=== PATIENT | male | born 1965 | race Caucasian/White ===

== ENCOUNTER 2018-09-06 18:56 | Emergency (ER) | payer BC ==
--- NOTE | 2018-09-06 19:28 | UC ---
Shoulder Pain HPI - HPI Summary HPI Summary: 52-year-old male comes to clinic [facility] with a chief complaint of right shoulder pain. This started 4 days ago. He's been going through physical therapy for left shoulder pain. When the right shoulder started hurting he had an x-ray with Dr. persaud and sports medicine which showed rotator cuffcalcific tendonitis. Patient's been taking ibuprofen 800 mg by mouth every 8 hours. The pain relief last for about 4 hours and then the pain returns. Pain is worse with any count of range of motion of the right shoulder. No weakness or numbness. - History of Current Complaint Stated Complaint: SHOULDER PAIN Time Seen by Provider: 09/06/18 19:23 - Allergies/Home Medications Allergies/Adverse Reactions: Allergies Allergy/AdvReac Type Severity Reaction Status Date / Time MS Epinephrine [Epinephrine] Allergy Tachycardia Verified 12/15/15 11:49 PMH/Surg Hx/FS Hx/Imm Hx Previously Healthy: Yes - shoulder tendonitis - Surgical History Surgical History: None - Family History Known Family History: Positive: None - Social History Alcohol Use: Weekly Substance Use Type: None Smoking Status (MU): Light Every Day Tobacco Smoker Type: Cigarettes Amount Used/How Often: 8-10 cigs Length of Time of Smoking/Using Tobacco: 30 years Have You Smoked in the Last Year: Yes Review of Systems All Other Systems Reviewed And Are Negative: Yes Constitutional: Positive: Negative Skin: Positive: Negative Eyes: Positive: Negative ENT: Positive: Negative Respiratory: Positive: Negative Cardiovascular: Positive: Negative Gastrointestinal: Positive: Negative Motor: Positive: Decreased ROM - see hpi Neurovascular: Positive: Negative Musculoskeletal: Positive: Other: - see hpi Neurological: Positive: Negative Psychological: Positive: Negative Is Patient Immunocompromised?: No Physical Exam Triage Information Reviewed: Yes Appearance: Well-Appearing, Well-Nourished, Pain Distress - mild with rt shoulder rom Vital Signs Reviewed: Yes Eye Exam: Normal Eyes: Positive: Conjunctiva Clear Neck exam: Normal Neck: Positive: Supple Respiratory: Positive: Lungs clear, Normal breath sounds, No respiratory distress Cardiovascular: Positive: RRR Musculoskeletal: Positive: Other: - Right shoulder is tender to palpation right at the shoulder joint. He has pain with any attempt at range of motion of the shoulder. Bilateral radial pulses are normal sensation is normal for both arms. Refill is normal bilaterally. Fingers wrist elbows have full range of motion and full strength. Further range of motion of the right shoulder was not attempted due to pain. Neurological Exam: Normal Neurological: Positive: Alert, Muscle Tone Normal Psychological Exam: Normal Psychological: Positive: Age Appropriate Behavior Skin Exam: Normal Shoulder Course/Dx - Course Course Of Treatment: Patient will continue his ibuprofen 800 mg by mouth every 8 hours. I prescribed [place]vue 5/325 to be taken every 4 hours as needed. Continue with his eyes and range of motion and he will follow-up with sports medicine on September 08, 2018. - Differential Dx/Diagnosis Provider Diagnosis: Right rotator cuff tendonitis Discharge - Sign-Out/Discharge Documenting (check all that apply): Patient Departure All imaging exams completed and their final reports reviewed: No Studies - Discharge Plan Condition: Stable Disposition: HOME Prescriptions: HYDROcodone/ACETAMIN 5-325 MG* [[place]vue 5-325 TAB*] 1 tab PO Q4H PRN #30 tab MDD 6 PRN Reason: Pain Patient Education Materials: Rotator Cuff Tendinitis (ED) Referrals: Ovidio Ceron MD [Primary Care Provider] - Jasper Cheung [Medical Doctor] - Additional Instructions: FOLLOW UP WITH DR CHEUNG. GET RECHECKED FOR ANY WORSENING OF YOUR CONDITION OR QUESTIONS OR CONCERNS. - Billing Disposition and Condition Condition: STABLE Disposition: Home
[2018-09-06] MEDS ORDERED: HYDROcodone/ACETAMIN 5-325 MG* 1 TAB PO ONE (19:30)
[2018-09-06 19:38] VITALS: BP 126/87
== END 2018-09-06 19:35 | disposition home or self-care (01) ==
LOC: UCEAST 18:56
DX: M75.31 Calcific tendinitis of right shoulder (principal); Z88.8 Allergy status to other drugs, medicaments and biological substances; F17.210 Nicotine dependence, cigarettes, uncomplicated
CPT/HCPCS: 99212; G0463

== ENCOUNTER 2018-09-06 21:51 | Emergency (ER) | payer BC ==
[2018-09-06] MEDS ORDERED: oxyCODONE/Acetamin 5/325 MG* TAB PO ONE (23:10)
[2018-09-06] MEDS ORDERED: Ketorolac INJ* 60 MG/2 ML VIAL IM ONE (23:10)
[2018-09-06] MEDS ORDERED: ALPRAZolam TAB* 0.5 MG PO ONE (23:11)
--- NOTE | 2018-09-06 23:12 | ED ---
Upper Extremity Pain - HPI Summary HPI Summary: This patient is a 52 year old M presenting to ED with a chief complaint of R shoulder pain since 2 days ago. The CC is described as swollen and sensitive. The patient rates the pain 10/10 in severity. Symptoms aggravated by nothing. Symptoms alleviated by nothing. Patient has only taken advil for the pain. Patient reports anxiety. PMHx of calcium deposit in rotator cuff. - History of Current Complaint Chief Complaint: EDExtremityUpper Stated Complaint: RT ARM PAIN Time Seen by Provider: 09/06/18 22:50 Hx Obtained From: Patient Onset/Duration: Started Days Ago - 2 days ago Timing: Constant Severity Initially: Severe Severity Currently: Severe Pain Location: Shoulder - elft Aggravating Factor(s): Nothing Alleviating Factor(s): Nothing - Allergies/Home Medications Allergies/Adverse Reactions: Allergies Allergy/AdvReac Type Severity Reaction Status Date / Time MS Epinephrine [Epinephrine] Allergy Tachycardia Verified 09/06/18 21:55 PMH/Surg Hx/FS Hx/Imm Hx Endocrine/Hematology History: Denies: Hx Diabetes, Hx Thyroid Disease Cardiovascular History: Denies: Hx Hypertension Respiratory History: Denies: Hx Asthma, Hx Chronic Obstructive Pulmonary Disease (COPD) GI History: Denies: Hx Ulcer Musculoskeletal History: Denies: Hx Rheumatoid Arthritis, Hx Osteoporosis Infectious Disease History: No Infectious Disease History: Denies: Hx Clostridium Difficile, Hx Hepatitis, Hx Human Immunodeficiency Virus (HIV), Hx of Known/Suspected MRSA, Hx Shingles, Hx Tuberculosis, Hx Known/ Suspected VRE, Hx Known/Suspected VRSA, History Other Infectious Disease, Traveled Outside the [place] in Last 30 Days - Family History Known Family History: Negative: Cardiac Disease - Social History Alcohol Use: Occasionally Substance Use Type: Reports: None Smoking Status (MU): Light Every Day Tobacco Smoker Type: Cigarettes Amount Used/How Often: 8-10 cigs Length of Time of Smoking/Using Tobacco: 30 years Have You Smoked in the Last Year: Yes Review of Systems Positive: Other - R shoulder pain Positive: Anxious All Other Systems Reviewed And Are Negative: Yes Physical Exam - Summary Physical Exam Summary: VITAL SIGNS: Reviewed. GENERAL: Patient is a well-developed and nourished MALE who is lying comfortable in the stretcher. Patient is not in any acute respiratory distress. HEAD AND FACE: No signs of trauma. No ecchymosis, hematomas or skull depressions. No sinus tenderness. EYES: PERRLA, EOMI x 2, No injected conjunctiva, no nystagmus. EARS: Hearing grossly intact. Ear canals and tympanic membranes are within normal limits. MOUTH: Oropharynx within normal limits. NECK: Supple, trachea is midline, no adenopathy, no JVD, no carotid bruit, no c- spine tenderness, neck with full ROM. CHEST: Symmetric, no tenderness at palpation LUNGS: Clear to auscultation bilaterally. No wheezing or crackles. CVS: Regular rate and rhythm, S1 and S2 present, no murmurs or gallops appreciated. ABDOMEN: Soft, non-tender. No signs of distention. No rebound no guarding, and no masses palpated. Bowel sounds are normal. EXTREMITIES: FROM in all major joints, no edema, no cyanosis or clubbing. Tenderness over the R humeral head. NEURO: Alert and oriented x 3. No acute neurological deficits. Speech is normal and follows commands. SKIN: Dry and warm Patient is anxious. Triage Information Reviewed: Yes Vital Signs On Initial Exam: Initial Vitals Temp Pulse Resp BP Pulse Ox 97.9 F 91 18 140/86 98 09/06/18 21:52 09/06/18 21:52 09/06/18 21:52 09/06/18 21:52 09/06/18 21:52 Vital Signs Reviewed: Yes Diagnostics - Vital Signs Vital Signs Temp Pulse Resp BP Pulse Ox 09/06/18 21:52 97.9 F 91 18 140/86 98 - Laboratory Lab Statement: Any lab studies that have been ordered have been reviewed, and results considered in the medical decision making process. Re-Evaluation - Re-Evaluation First Eval Re-Evaluation Time: 00:44 Change: Improved Comment: Patient reports that he took the medication and is now feeling better. Discussed plan for discharge. Patient understands and agrees. Course/Dx - Course Assessment/Plan: This patient is a 52 year old M presenting to ED with a chief complaint of R shoulder pain since 2 days ago. In the ED course, the patient was given Toradol, percocet, and xanax. The patient feels better in the ED and will be discharged home with instructions to follow up with ortho on Saturday morning. He will also be given a sling. - Diagnoses Provider Diagnoses: Tendonitis Discharge - Sign-Out/Discharge Documenting (check all that apply): Patient Departure - discharge - Discharge Plan Condition: Stable Disposition: HOME Patient Education Materials: Tendinitis (ED) Referrals: Radha Keller MD [Medical Doctor] - 09/08/18 (Follow up with Dr. Keller on Saturday.) Additional Instructions: RETURN TO THE EMERGENCY DEPARTMENT FOR CHANGING OR WORSENING SYMPTOMS. FOLLOW UP WITH PCP IN 1-2 DAYS[address] FOLLOW UP WITH DR. KELLER ON 09/08/18. WEAR YOUR SLING AND TAKE VICODIN FOR PAIN NEEDED. - Attestation Statements Document Initiated by Scribe: Yes Documenting Scribe: Jose Meehan Provider For Whom Scribe is Documenting (Include Credential): Twila Contreras MD Scribe Attestation: Jose Sandhu, scribed for Twila Contreras MD on 09/07/18 at 0044. Status of Scribe Document: Ready
[2018-09-07 02:21] VITALS: BP 127/89
== END 2018-09-07 02:20 | disposition home or self-care (01) ==
LOC: ED 21:51
DX: M77.9 Enthesopathy, unspecified (principal); M25.511 Pain in right shoulder; F17.210 Nicotine dependence, cigarettes, uncomplicated; F41.9 Anxiety disorder, unspecified
CPT/HCPCS: 96372; 99282; A9270-GY; J1885